=== PATIENT | male | born 1985 | race Caucasian/White ===

== ENCOUNTER 2017-08-31 20:02 | Emergency (ER) | payer OTHER ==
[~2017-08-31] VITALS: Ht 182.9 cm; Wt 81.7 kg
[2017-08-31] MEDS ORDERED: CEPH500 PO (20:50)
[2017-08-31] MEDS ORDERED: Bactrim Ds Tab1 EACH PO (20:50)
== END 2017-08-31 21:26 | disposition home or self-care (01) ==
LOC: ER 20:02
DX: L03.113 Cellulitis of right upper limb (principal); F17.210 Nicotine dependence, cigarettes, uncomplicated

== ENCOUNTER 2019-09-17 17:02 | Emergency (ER) | payer OTHER ==
[~2019-09-17] VITALS: Ht 182.9 cm; Wt 87.5 kg
[~2019-09-17 17:02] MED LIST: Bactrim Ds Tab1 EACH PO; CEPH500 PO
[2019-09-17] MEDS ORDERED: BUPRENORPHINE HC8 MG SL (18:48)
[2019-09-17] MEDS ORDERED: CEPH500 PO (20:16)
[2019-09-17] MEDS ORDERED: Bactrim Ds Tab1 EACH PO (20:16)
[2019-09-17] MEDS ORDERED: IBUP800 PO (20:16)
== END 2019-09-17 20:27 | disposition home or self-care (01) ==
LOC: ER 17:02
DX: L02.411 Cutaneous abscess of right axilla (principal); F17.210 Nicotine dependence, cigarettes, uncomplicated
CPT/HCPCS: 10060; 96372-59; 99283-25; J1885

== ENCOUNTER 2019-09-19 14:19 | Emergency (ER) | payer OTHER ==
[~2019-09-19] VITALS: Ht 182.9 cm; Wt 84.5 kg
[~2019-09-19 14:19] MED LIST changes: +BUPRENORPHINE HC8 MG SL; +IBUP800 PO
== END 2019-09-19 15:00 | disposition home or self-care (01) ==
LOC: ER 14:19
DX: Z48.817 Encounter for surgical aftercare following surgery on the skin and subcutaneous tissue (principal); F17.210 Nicotine dependence, cigarettes, uncomplicated
CPT/HCPCS: 99282

== ENCOUNTER 2019-09-23 09:11 | Emergency (ER) | payer OTHER ==
[~2019-09-23] VITALS: Ht 182.9 cm; Wt 84.4 kg
[2019-09-23] MEDS ORDERED: CEPH500 PO (10:45)
[2019-09-23] MEDS ORDERED: Bactrim Ds Tab1 EACH PO (10:45)
== END 2019-09-23 11:00 | disposition home or self-care (01) ==
LOC: ER 09:11
DX: Z48.817 Encounter for surgical aftercare following surgery on the skin and subcutaneous tissue (principal); F17.210 Nicotine dependence, cigarettes, uncomplicated
CPT/HCPCS: 76882; 99283-25

== ENCOUNTER 2021-04-21 17:22 | Inpatient (IN) | payer OTHER ==
[~2021-04-21] VITALS: Ht 182.9 cm; Wt 87.2 kg
[2021-04-21 18:12] LABS: BASOPHILS ABSOLUTE AUTO 0.12 K/mm3 (0.00-0.23); BASOPHILS PERCENT AUTO 1 % (0-2); EOSINOPHILS ABSOLUTE AUTO 0.03 K/mm3 (0.00-0.68); EOSINOPHILS PERCENT AUTO 0 % (0-6); Hematocrit 40.5 % (37.0-53.0); IMMATURE GRAN ABSOLUTE AUTO 0.06 K/mm3 (0.00-0.10); IMMATURE GRAN PERCENT AUTO 0 % (0-1); LYMPHOCYTES ABSOLUTE AUTO 1.39 K/mm3 (0.84-5.20); LYMPHOCYTES PERCENT AUTO 10 % (21-46); MONOCYTES ABSOLUTE AUTO 1.11 K/mm3 (0.16-1.47); MONOCYTES PERCENT AUTO 8 % (4-13); Mean Corpuscular HGB 32.5 pg (26.0-34.0); Mean Corpuscular HGB Conc 34.6 g/dL (31.5-36.5); Mean Corpuscular Volume 94 fL (80-100); Mean Platelet Volume 9.8 fL (9.1-12.4); NEUTROPHILS ABSOLUTE AUTO 11.78 K/mm3 (1.96-9.15); NEUTROPHILS PERCENT AUTO 81 % (41-73); Platelet Count 284 K/mm3 (150-400); RDW Coefficient Variation 12.3 % (11.7-14.2); RDW Standard Deviation 43.3 fL (35.1-46.3); Red Blood Cell Count 4.31 M/mm3 (4.30-5.90); White Blood Cell Count 14.49 K/mm3 (4.00-11.30)
[2021-04-21 18:45] LABS: Alanine Aminotransfer (ALT/SGP 30 U/L (12-78); Albumin, Blood 4.2 g/dL (3.4-5.0); Albumin/Globulin Ratio 1.1 (0.8-1.8); Alk Phos 77 U/L (50-136); Anion Gap 9 mmol/L (6-16); Aspartate Aminotrans (AST/SGOT 29 U/L (12-37); Bilirubin, Total 0.2 mg/dL (0.1-1.0); Blood Urea Nitrogen 24 mg/dL (8-24); Bun/Creatinine Ratio 26.1 (12.0-20.0); CO2, Blood 31 mmol/L (21-32); Calcium, Blood 9.2 mg/dL (8.5-10.1); Chloride, Blood 97 mmol/L (98-108); Creatinine, Blood 0.92 mg/dL (0.60-1.20); Globulin, Blood 3.9 g/dL (2.2-4.0); Glomerular Filtration Rate >60 (60-); Glucose, Blood 102 mg/dL (70-99); Potassium, Blood 3.7 mmol/L (3.5-5.5); Sodium, Blood 137 mmol/L (136-145); Total Protein, Blood 8.1 g/dL (6.4-8.2)
[2021-04-21 19:53] LABS: International Normalized Ratio 1.14; Prothrombin Time Results 11.9 Sec (9.7-11.5)
[2021-04-21] MEDS ORDERED: Hydroxyzine HCl50 MG PO (23:20)
[2021-04-21] MEDS ORDERED: NEURONTIN300 MG PO (23:21)
--- NOTE | 2021-04-22 01:00 | NUR ---
PT ARRIVES TO ICU 13 FROM ED AT 2305. REPORT RECEIVED. PT STANDS AND PIVOT TRANSFERS TO BED FROM [facility]. PT STATES THAT HIS INDIGESTION (BURNING SENSATION) IN HIS THROAT AND STOMACHE HAD IMPROVED. PT GOOD HISTORIAN. ON ROOM AIR, PT DID DESATURATED TO [address] O2 AT 1.5 L/M. THIS AFFECTIVE IN KEEPING OXYGEN SATURATION > 90 PERCENT. PROTONIX DRIP INFUSING AT 8 MG/HOUR. PT HAS NO EMESIS AT THIS TIME. REPORT GIVEN TO FABRICIO CARTER.
[2021-04-22 03:33] LABS: Hematocrit 35.5 % (37.0-53.0); Mean Corpuscular HGB 32.3 pg (26.0-34.0); Mean Corpuscular HGB Conc 33.8 g/dL (31.5-36.5); Mean Corpuscular Volume 95 fL (80-100); Mean Platelet Volume 9.7 fL (9.1-12.4); Platelet Count 217 K/mm3 (150-400); RDW Coefficient Variation 12.6 % (11.7-14.2); RDW Standard Deviation 43.2 fL (35.1-46.3); Red Blood Cell Count 3.72 M/mm3 (4.30-5.90)
[2021-04-22 04:45] LABS: Alanine Aminotransfer (ALT/SGP 24 U/L (12-78); Albumin, Blood 3.3 g/dL (3.4-5.0); Albumin/Globulin Ratio 1.1 (0.8-1.8); Alk Phos 68 U/L (50-136); Anion Gap 8 mmol/L (6-16); Aspartate Aminotrans (AST/SGOT 15 U/L (12-37); Bilirubin, Total 0.6 mg/dL (0.1-1.0); Blood Urea Nitrogen 18 mg/dL (8-24); CO2, Blood 32 mmol/L (21-32); Calcium, Blood 8.5 mg/dL (8.5-10.1); Chloride, Blood 101 mmol/L (98-108); Globulin, Blood 3.1 g/dL (2.2-4.0); Glomerular Filtration Rate >60 (60-); Glucose, Blood 94 mg/dL (70-99); Potassium, Blood 3.8 mmol/L (3.5-5.5); Sodium, Blood 141 mmol/L (136-145); Total Protein, Blood 6.4 g/dL (6.4-8.2)
--- NOTE | 2021-04-22 06:04 | NUR ---
SHIFT SUMMARY ASSUMED CARE OF PATIENT AT APPROXIMETLY 0045 SHORTLY AFTER5 ARRIVAL TO ICU. FOUND TO BE AN ANXIOUS MAN WITH INTERMITTENT ESOPHAGEAL SPASMING. A&0 AND COMPLIANT WITH CARE. STATES THIS BRINGS 8/10 PAIN AND HAPPENS SEVERAL TIMES AN HOUR. MEDICATED WITH FENT WITH GOOD RELIEF.CIWA SCORES FROM 16-20 AND MEDICATED PER EMAR. SEIZURE AND ASPIRATION PRECATUTIONS IN PLACE. VSS. ON 2L NC SATING LOW 90'S. NSR ON THE MONITOR. DRY, HACKING COUGH NOTED AND PRN TESSALON GIVEN. NO BLOODY SPUTUM OR EMESIS ALL SHIFT. NPO FOR POSSIBLE SCOPE. CHIPS AND SIPS WITH MEDS OK. PRN REGLAN GIVEN X1 FOR CONTINUOUS NAUSEA WITH DECENT RELIEF. VOIDING WELL PER URINAL. NO ACUTE CONCERNS AT THIS TIME. WILL CONTINUE PLAN OF CARE UNTIL REPORT GIVEN TO LIZZIE REGALADO.
[2021-04-22 08:39] LABS: Influenza A, PCR NEGATIVE (NEGATIVE); Influenza B, PCR NEGATIVE (NEGATIVE); Resp Syncytial Virus, PCR NEGATIVE (NEGATIVE); SARS-Cov-2 (COVID-19) PCR, MMC NEGATIVE (NEGATIVE)
[2021-04-22 12:14] LABS: Hematocrit 34.4 % (37.0-53.0); Hemoglobin 11.9 g/dL (13.5-17.5)
--- NOTE | 2021-04-22 13:27 | NUR ---
PT STATES BURNING AND ACHING PAIN IN THROAT THAT SPANS TO HIS CHEST, ESPECIALLY WHEN HE COUGHS OR SWALLOWS. PT STATES NO HISTORY OF CHEST PAIN PRIOR TO THIS HOSPITAL VISIT AND SAYS THAT THE PAIN IS ONLY RELATED TO THE "TEAR IN MY THROAT".
--- NOTE | 2021-04-22 14:42 | NUR ---
04/22/21 1442 Ariel Calvert History, Chart, Medications and Allergies reviewed before start of procedure. MONITOR INTACT WITH CONTINUOUS PULSE OXIMETRY AND INTERMITTENT BP. EKG MONITORED DURING PROCEDURE. O2 VIA N/C INTACT THROUGHOUT SEDATION/PROCEDURE. Bite Block Placed, WILL BE REMOVED AFTER PROCEDURE. See Anesthesia record/DR WHITE.
[2021-04-22] MEDS ORDERED: SUCR1 PO (16:36)
[2021-04-22] MEDS ORDERED: PANT40 PO (16:37)
--- NOTE | 2021-04-22 17:04 | NUR ---
DISCHARGE HOME PT REPORTS FEELING WELL AFTER RETURNING FROM EGD. DR ADDISON DISCUSSED EGD FINDINGS AND OK'D PT TO GO HOME THIS AFTERNOON. DISCHARGE ORDERS RECIEVED FROM DR REN. PT AT BEDSIDE TO TAKE PT HOME. NEW MEDICATIONS CALLED IN TO [facility] IN [place]. IV'S DC'D. ALL BELONGINGS TAKEN WITH PT. PT LEFT ROOM AT 1700 VIA WHEELCHAIR.
== END 2021-04-22 17:00 | disposition home or self-care (01) | DRG 369 ==
LOC: ER 17:22 → ICUW 17:23 → ER 22:55 → ICUW 23:17
PROVIDERS: Family Medicine; Physician Assistant; Student in an Organized Health Care Education/Training Program; ADMIT Internal Medicine
PROC: 0DB38ZX Excision of Lower Esophagus, Via Natural or Artificial Opening Endoscopic, Diagnostic (ICD-10-PCS; 2021-04-22)
PROC: 0DB28ZX Excision of Middle Esophagus, Via Natural or Artificial Opening Endoscopic, Diagnostic (ICD-10-PCS; 2021-04-22)
PROC: HZ2ZZZZ Detoxification Services for Substance Abuse Treatment (ICD-10-PCS; principal; 2021-04-22 14:00)
DX: K20.91 Esophagitis, unspecified with bleeding (principal); D62 Acute posthemorrhagic anemia; F10.239 Alcohol dependence with withdrawal, unspecified; K92.0 Hematemesis; F17.210 Nicotine dependence, cigarettes, uncomplicated; Z20.822 Contact with and (suspected) exposure to COVID-19; Z71.41 Alcohol abuse counseling and surveillance of alcoholic; Z71.6 Tobacco abuse counseling; Z90.49 Acquired absence of other specified parts of digestive tract; Z98.890 Other specified postprocedural states; Z79.899 Other long term (current) drug therapy
CPT/HCPCS: 0241U; 36415; 70491; 71260; 74022; 80053; 85014; 85018; 85025; 85027; 85610; 86850; 86900; 86901; 93005; 93010; 96365-59; 96366-59; 96375; 96375-59; 96376; 96376-59; 99285-25; A9270; C9113; G0378; J0696; J1170; J2060; J2250; J2405; J2704; J2765; J3010; J3411; J7030; J7050; J7120; Q9967